=== PATIENT | female | born 1980 | race Caucasian/White ===

== ENCOUNTER 2020-01-18 20:28 | Emergency (ER) | payer OTHER ==
[~2020-01-18] VITALS: Ht 172.7 cm; Wt 86.0 kg
[2020-01-18 21:40] LABS: BASOPHILS # (AUTO) 0.09 x10^3/uL (0-0.1); BASOPHILS % (AUTO) 1 % (0-1); EOSINOPHILS # (AUTO) 0.26 x10^3/uL (0-0.4); EOSINOPHILS % (AUTO) 3 % (1-7); LYMPHOCYTES # (AUTO) 3.95 x10^3/uL (1-3.4); LYMPHOCYTES % (AUTO) 39 % (22-44); MD NO; MEAN CORPUSCULAR HEMOGLOBIN 23.7 pg (27.0-34.8); MEAN CORPUSCULAR HGB CONC 31.8 g/dL (32.4-35.8); MEAN CORPUSCULAR VOLUME 74.5 fL (80-100); MEAN PLATELET VOLUME 8.3 fL (7.4-10.4); MONOCYTES # (AUTO) 0.89 x10^3/uL (0.2-0.8); MONOCYTES % (AUTO) 9 % (2-9); NEUTROPHILS % (AUTO) 49 % (42-75); PLATELET COUNT 384 x10^3/uL (130-400); RED BLOOD COUNT 4.34 x10^6/uL (3.82-5.3); RED CELL DISTRIBUTION WIDTH 19.5 % (9.6-15.2)
--- NOTE | 2020-01-18 21:50 | NUR ---
URINE COLLECTED AND SENT TO LAB
[2020-01-18 21:53] LABS: ALANINE AMINOTRANSFERASE 22 U/L (12-78); ALBUMIN 3.7 g/dL (3.4-5.0); ANION GAP 6 mmol/L (5-15); CALCIUM 8.6 mg/dL (8.5-10.1); CHLORIDE 106 mmol/L (98-107); CREATININE 0.92 mg/dL (0.55-1.02)
[2020-01-18 21:57] LABS: ALKALINE PHOSPHATASE 45 U/L (45-117); BILIRUBIN,TOTAL 0.2 mg/dL (0.2-1.0)
--- NOTE | 2020-01-18 22:06 | NUR ---
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
[2020-01-18 22:10] LABS: MICROSCOPIC AUTO
[2020-01-18] MEDS ORDERED: SODIUM CHLORIDE FLUSH 10ML SYR IVF ONE (22:30)
[2020-01-18] MEDS ORDERED: MORPHINE SULFATE 4 MG/ML, 1ML IVPush PRN (22:30)
[2020-01-18] MEDS ORDERED: ONDANSETRON 2MG/ML, 2ML IVPush ONE (22:30)
--- NOTE | 2020-01-18 22:45 | NUR ---
RN in room at this time, was not aware room 29 was assigned to him. First contact. Pt arrives to ed with pelvic pain. Pt reports she has severe pain due to fibroids. Pt reports she suppose to have a hysterectomy but choose not to because she left to travel and isolate. Pt reports no chronic conditions. Pt reports she always has chronic pain and after her menses she always gets much worse. Pt had piv placed and medicated per emar. Pt informed of NPO and helped to restroom. Awaiting further orders.
[2020-01-18] MEDS ORDERED: ONDANSETRON 2MG/ML, 2ML ONE (22:53)
[2020-01-18] MEDS ORDERED: MORPHINE SULFATE 4 MG/ML, 1ML ONE (22:53)
--- NOTE | 2020-01-18 23:58 | NUR ---
Report to Andrei RICHARDSON, informed pt medicated for pain. Pt to US at this time.
--- NOTE | 2020-01-19 | NUR ---
REPORT RECIEVED FROM JENNIFER RICHARDSON, THIS RN TO ASSUME CARE OF PT. PT TO US.
[2020-01-19] MEDS ORDERED: MORPHINE SULFATE 4 MG/ML, 1ML ONE ×2 (00:53→01:21)
[2020-01-19] MEDS: MORPHINE SULFATE 4 MG/ML, 1ML IVPush PRN ×2 (00:59→01:26)
[2020-01-19] MEDS ORDERED: OMNIPAQUE 350 MG/ML, 100ML BOTTLE ONE (01:14)
--- NOTE | 2020-01-19 01:15 | NUR ---
PT. RETURN FROM CT. STATES PAIN "ONLY SLIGHTLY BETTER" AFTER MANAGER INTERFACE (11/05) DIFFUSE ABD PAIN. RESTING ON GURNEY WITH FAMILY AT BS. REQUESTING MORE PAIN MEDS.
[2020-01-19 01:44] VITALS: BP 119/75
--- NOTE | 2020-01-19 01:44 | NUR ---
PT. REPORTS PAIN IS "BETTER, IT'S DOWN TO A 6". PT. DENIES OTHER NEEDS. AWAITING CT READ.
--- NOTE | 2020-01-19 02:54 | NUR ---
PT REQUESTING PRESCRIPTION FOR PAIN MEDICATION. ERP STATED NOT WILLING TO WRITE NARCOTIC PRESCRIPTION BUT OK WRITING PRESCRIPTION FOR IBUPROFEN OR TYLENOL.
== END 2020-01-19 03:04 | disposition home or self-care (01) ==
LOC: ED 23:49
DX: R10.31 Right lower quadrant pain (principal); R11.2 Nausea with vomiting, unspecified; N85.8 Other specified noninflammatory disorders of uterus; R93.41 Abnormal radiologic findings on diagnostic imaging of renal pelvis, ureter, or bladder
CPT/HCPCS: 36415; 74177; 76830; 80053; 81001; 83690; 84703; 85025; 87077; 87086; 96374; 96375; 96376; 99285; J2270; J2405; Q9967; 87186